=== PATIENT | male | born 1945 | race Caucasian/White ===

== ENCOUNTER 2017-08-04 11:15 | Emergency (ER) | payer MEDICARE, OTHER ==
[~2017-08-04] VITALS: Ht 170.2 cm; Wt 77.0 kg
[~2017-08-04 11:15] MED LIST: LISINOPRIL10 MG PO; ZESTRIL/PRI20 MG/TAB PO
[2017-08-04] MEDS ORDERED: LOSARTAN POT50 MG PO (11:33)
[2017-08-04] MEDS ORDERED: BACTRIM DS1 TAB PO (14:21)
[2017-08-04] MEDS ORDERED: CEPHALEXIN500 MG PO (14:21)
[2017-08-04 14:53] VITALS: BP 133/71
== END 2017-08-04 14:58 | disposition home or self-care (01) ==
LOC: ED 11:15
PROC: 0HQGXZZ Repair Left Hand Skin, External Approach (ICD-10-PCS; principal; 2017-08-04)
PROC: 0HQFXZZ Repair Right Hand Skin, External Approach (ICD-10-PCS; 2017-08-04)
PROC: 2W3JX1Z Immobilization of Right Finger using Splint (ICD-10-PCS; 2017-08-04)
DX: S61.213A Laceration without foreign body of left middle finger without damage to nail, initial encounter (principal); S61.215A Laceration without foreign body of left ring finger without damage to nail, initial encounter; S61.212A Laceration without foreign body of right middle finger without damage to nail, initial encounter; W31.89XA Contact with other specified machinery, initial encounter; Y93.89 Activity, other specified; Y92.009 Unspecified place in unspecified non-institutional (private) residence as the place of occurrence of the external cause

== ENCOUNTER 2020-07-20 06:58 | Day surgery (SDC) | payer MEDICARE, OTHER ==
[~2020-07-20 06:58] MED LIST changes: +BACTRIM DS1 TAB PO; +CEPHALEXIN500 MG PO; +ERYTHROMYCIN O3.5 GM OS; +LOSARTAN POT50 MG PO; +TIZANIDINE2 MG PO
[2020-07-20 09:42] VITALS: BP 122/71
== END 2020-07-20 10:10 | disposition home or self-care (01) ==
LOC: ENDO 06:58 → ORM 08:45 → ENDO 08:45 → ORM 11:00
PROVIDERS: ATTEND Surgery
PROC: 0DJD8ZZ Inspection of Lower Intestinal Tract, Via Natural or Artificial Opening Endoscopic (ICD-10-PCS; principal; 2020-07-20)
DX: Z12.11 Encounter for screening for malignant neoplasm of colon (principal); K57.30 Diverticulosis of large intestine without perforation or abscess without bleeding; I10 Essential (primary) hypertension; Z86.010 Personal history of colon polyps; Z20.828 Contact with and (suspected) exposure to other viral communicable diseases
CPT/HCPCS: G0105

== ENCOUNTER 2022-08-08 01:29 | Emergency (ER) | payer MEDICARE, OTHER ==
[~2022-08-08] VITALS: Ht 175.3 cm; Wt 75.0 kg
[2022-08-08 02:19] LABS: IMMATURE GRANULOCYTES 0.2 % (0.0-5.0); MEAN CELL VOLUME 87.2 fL CALC (80.0-100.0); MEAN CORPUSCULAR HGB 28.6 pG CALC (26.0-32.0); MEAN CORPUSCULAR HGB CONC 32.8 g/dL CAL (32.0-36.0); NEUT# 7.57 thou/uL (1.82-7.42); RED BLOOD COUNT 4.54 mill/uL (4.70-6.10); RED CELL DISTRI WIDTH 12.9 % (11.5-15.5)
[2022-08-08 02:31] LABS: HEMATOCRIT 39.6 % (39.0-50.0)
[2022-08-08 02:40] LABS: ALBUMIN 3.4 g/dL (3.2-5.0); ALKALINE PHOSPHATASE 110 u/l (38-126); ANION GAP 10 (6-22 (CALC)); BILIRUBIN, TOTAL 0.7 mg/dL (0.0-1.4); BUN 21 mg/dL (8-23); BUN/CREATININE RATIO 22 (12-20 (CALC)); CARBON DIOXIDE 25 mmol/l (22-30); CHLORIDE 106 mmol/l (95-108); CREATININE 0.9 mg/dL (0.7-1.3); GFR FOR AFR.AMER. > 60 ML/MIN (>=60 (CALC)); GFR OTHER RACES > 60 ML/MIN (>=60 (CALC)); LIPASE 186 u/l (23-300); POTASSIUM 4.1 mmol/l (3.5-5.1); SGOT/AST 22 u/l (19-48); SODIUM 136 mmol/l (137-146)
[2022-08-08 03:04] LABS: URINE BILIRUBIN - DIPSTICK NEGATIVE (NEGATIVE); URINE BLOOD DIPSTICK LARGE (NEGATIVE); URINE COLOR YELLOW; URINE GLUCOSE - DIPSTICK NEGATIVE (NEGATIVE); URINE KETONE NEGATIVE (NEGATIVE); URINE LEUK ESTERASE NEGATIVE (NEGATIVE); URINE PH 5.5 (4.5-8.0); URINE PROTEIN - DIPSTICK TRACE mg/dL (NEG-TRACE); URINE SPECIFIC GRAVITY 1.025; URINE UROBILINOGEN - DIPSTICK 0.2 E.U./dL (0.2)
[2022-08-08 03:06] LABS: URINE NITRITE - DIPSTICK NEGATIVE (Negative)
[2022-08-08 03:11] LABS: URINE BACTERIA FEW hpf; URINE RBC 50-100 RBC/hpf (0-5); URINE SQUAMOUS EPITHELIAL CELL FEW EPI/hpf (0-FEW)
[2022-08-08] MEDS ORDERED: TAMSULOSIN0.4 MG PO (03:21)
[2022-08-08] MEDS ORDERED: PERCOCET 5/325M1 TAB PO (03:21)
[2022-08-08 03:33] VITALS: BP 160/78
== END 2022-08-08 04:13 | disposition home or self-care (01) ==
LOC: ED 01:29
PROVIDERS: Emergency Medicine
DX: N13.2 Hydronephrosis with renal and ureteral calculous obstruction (principal); I10 Essential (primary) hypertension; M54.30 Sciatica, unspecified side

== ENCOUNTER 2022-08-11 07:23 | Day surgery (SDC) | payer MEDICARE, OTHER ==
[~2022-08-11] VITALS: Ht 175.3 cm; Wt 74.8 kg
[~2022-08-11 07:23] MED LIST changes: +PERCOCET 5/325M1 TAB PO; +TAMSULOSIN0.4 MG PO
[2022-08-11 11:23] VITALS: BP 138/27
== END 2022-08-11 11:50 | disposition home or self-care (01) ==
LOC: ORM 07:23
PROVIDERS: ATTEND Urology
PROC: 0T768DZ Dilation of Right Ureter with Intraluminal Device, Via Natural or Artificial Opening Endoscopic (ICD-10-PCS; principal; 2022-08-11)
PROC: BT1DZZZ Fluoroscopy of Right Kidney, Ureter and Bladder (ICD-10-PCS; 2022-08-11)
DX: N13.2 Hydronephrosis with renal and ureteral calculous obstruction (principal); I10 Essential (primary) hypertension; H54.62 Unqualified visual loss, left eye, normal vision right eye; Z87.891 Personal history of nicotine dependence
CPT/HCPCS: C1769; J1956; Q9966

== ENCOUNTER 2023-03-27 08:19 | Day surgery (SDC) | payer MEDICARE, OTHER ==
[~2023-03-27] VITALS: Ht 175.3 cm; Wt 75.7 kg
[~2023-03-27 08:19] MED LIST changes: +ARAVA10 MG PO; +PREDNISONE5 MG PO
[2023-03-27] MEDS ORDERED: PERCOCET 5/325M1 TAB PO (09:48)
[2023-03-28 11:45] VITALS: BP 122/70
== END 2023-03-27 10:50 | disposition home or self-care (01) ==
LOC: ORM 08:19
PROVIDERS: ATTEND Surgery
PROC: 0LB60ZZ Excision of Left Lower Arm and Wrist Tendon, Open Approach (ICD-10-PCS; principal; 2023-03-27)
PROC: 0LJX0ZZ Inspection of Upper Tendon, Open Approach (ICD-10-PCS; 2023-03-27)
DX: M67.432 Ganglion, left wrist (principal); S46.212A Strain of muscle, fascia and tendon of other parts of biceps, left arm, initial encounter; X58.XXXA Exposure to other specified factors, initial encounter
CPT/HCPCS: J0690

== ENCOUNTER 2024-05-04 01:15 | Emergency (ER) | payer MEDICARE, OTHER ==
[2024-05-04] VITALS (7 sets, daily range): BP systolic 104–139; BP diastolic 54–72
[~2024-05-04] VITALS: Ht 175.3 cm; Wt 78.0 kg
[2024-05-04] MEDS ORDERED: SODIUM CHLORIDE 0.9% 1,000 ML IV ONE (01:25)
[2024-05-04] MEDS ORDERED: ACETAMINOPHEN 500 MG TAB PO ONE (01:25)
[2024-05-04] MEDS ORDERED: KETOROLAC TROMETHAMINE 30 MG/ML SDV IV ONE (01:25)
[2024-05-04 01:51] LABS: BASO% 0.1 % (0-3); HEMATOCRIT 49.3 % (39.0-50.0); HEMOGLOBIN 16.7 g/dl (14.0-18.0); IMMATURE GRANULOCYTES 0.3 % (0.0-5.0); LYMPH% 3.3 % (15-41); MEAN CELL VOLUME 88.2 fL CALC (80.0-100.0); MEAN CORPUSCULAR HGB 29.9 pG CALC (26.0-32.0); MEAN CORPUSCULAR HGB CONC 33.9 g/dL CAL (32.0-36.0); MONO% 1.6 % (2-13); NEUT# 6.32 thou/uL (1.82-7.42); NEUT% 94.7 % (42-76); RED BLOOD COUNT 5.59 mill/uL (4.70-6.10); RED CELL DISTRI WIDTH 13.5 % (11.5-15.5)
[2024-05-04 02:11] LABS: ALBUMIN 4.4 g/dL (3.2-5.0); BILIRUBIN, TOTAL 1.8 mg/dL (0.2-1.3); CREATININE 1.3 mg/dL (0.7-1.3); POTASSIUM 4.4 mmol/l (3.5-5.1); TOTAL PROTEIN 7.4 g/dL (6.3-8.2)
[2024-05-04] MEDS ORDERED: LACTATED RINGER'S 1,000 ML IV ONE (02:35)
[2024-05-04 03:13] LABS: URINE BILIRUBIN - DIPSTICK Negative (NEGATIVE); URINE BLOOD DIPSTICK Trace-lysed (NEGATIVE); URINE GLUCOSE - DIPSTICK Negative (NEGATIVE); URINE KETONE Negative (NEGATIVE); URINE LEUK ESTERASE Negative (NEGATIVE); URINE NITRITE - DIPSTICK Negative (Negative); URINE PROTEIN - DIPSTICK Trace mg/dL (NEG-TRACE); URINE SPECIFIC GRAVITY 1.025; URINE UROBILINOGEN - DIPSTICK 0.2 E.U./dL (0.2)
[2024-05-04 03:14] LABS: URINE COLOR Yellow
[2024-05-04] MEDS ORDERED: DOXYCYCLINE HYCLATE 100 MG/CAP PO ONE (03:45)
[2024-05-04] MEDS ORDERED: VIBRAMYCIN100 M2 PO (03:47)
--- NOTE | 2024-05-05 13:42 | NUR ---
PRELIMINARY BLOOD CULTURE RESULTS SHOWING G- RODS. INFORMED DR ANGEL. VIA DR ANGEL HAVE PT RETURN TO HOSPITAL. CONTACTED PT. PT STATED THEY ARE FEELING OK. PT STATES THEY WILL RETURN TO THE ED WITHIN HALF AN HOUR. CALLED ER AND LET THEM KNOW PT WILL RETUN TO ED. SPOKE TO MYLES WHO WILL RELAY THE MESSAGE TO DR ANGEL HE IS CURRENTLY INDISPOSED.
[2024-05-07] MEDS ORDERED: CEFTRIAXONE2 GM IV (12:40)
== END 2024-05-04 04:05 | disposition home or self-care (01) ==
LOC: ED 01:15
PROVIDERS: Family Medicine
DX: J20.9 Acute bronchitis, unspecified (principal); I10 Essential (primary) hypertension; Z20.822 Contact with and (suspected) exposure to COVID-19; R78.81 Bacteremia

== ENCOUNTER 2024-05-29 08:06 | Day surgery (SDC) | payer MEDICARE, OTHER ==
[~2024-05-29] VITALS: Ht 175.3 cm; Wt 77.1 kg
[~2024-05-29 08:06] MED LIST changes: +CEFTRIAXONE2 GM IV; +VIBRAMYCIN100 M2 PO
[2024-05-29] MEDS ORDERED: FAMOTIDINE 10MG/ML 2ML SDV IV ONE (08:20)
[2024-05-29] MEDS ORDERED: LACTATED RINGER'S 1,000 ML IV ONE (08:21)
[2024-05-29 10:13] VITALS: BP 137/70
[2024-05-29] MEDS ORDERED: PROPOFOL 200 MG/20 ML VIAL IV ONE (13:46)
[2024-05-29] MEDS ORDERED: LIDOCAINE HCL 2% 2ML SDV IV ONE (13:46)
== END 2024-05-29 10:30 | disposition home or self-care (01) ==
LOC: ORM 08:06
PROVIDERS: ATTEND Surgery
PROC: 0DJD8ZZ Inspection of Lower Intestinal Tract, Via Natural or Artificial Opening Endoscopic (ICD-10-PCS; principal; 2024-05-29)
DX: K57.30 Diverticulosis of large intestine without perforation or abscess without bleeding (principal); K64.8 Other hemorrhoids; I10 Essential (primary) hypertension